=== PATIENT | male | born 1990 | race Caucasian/White ===

== ENCOUNTER 2024-07-06 08:22 | Outpatient (CLI) | payer BC | END 2024-07-06 08:23 | disposition home or self-care (01) | LOC: CSHSLEEP 08:22 | PROVIDERS: ATTEND Family Medicine | DX: G47.10 Hypersomnia, unspecified (principal); G47.9 Sleep disorder, unspecified; R53.83 Other fatigue; R06.83 Snoring; I10 Essential (primary) hypertension; G47.33 Obstructive sleep apnea (adult) (pediatric) | CPT/HCPCS: 95800 ==

== ENCOUNTER 2024-08-05 08:28 | Outpatient (CLI) | payer BC | END 2024-08-05 08:29 | disposition home or self-care (01) | LOC: CSHSLEEP 08:28 | PROVIDERS: ATTEND Family Medicine | DX: G47.10 Hypersomnia, unspecified (principal); G47.9 Sleep disorder, unspecified; R53.83 Other fatigue; R06.83 Snoring; I10 Essential (primary) hypertension; G47.33 Obstructive sleep apnea (adult) (pediatric) | CPT/HCPCS: 95811 ==